=== PATIENT | female | born 1950 | race Caucasian/White ===

== ENCOUNTER 2017-06-25 05:27 | Emergency (ER) | payer MEDICARE, MEDICAID ==
[2017-06-25 06:13] LABS: ABSOLUTE LYMPHOCYTES (AUTO) 1.1 10^3/uL (0.5-4.7); ABSOLUTE MONOCYTES (AUTO) 0.2 10^3/uL (0.1-1.4); ABSOLUTE NEUT (AUTO) 5.5 10^3/uL (1.7-8.2); BASOPHILS % (AUTO) 0.5 % (0-2); EOSINOPHILS % (AUTO) 0.3 % (0-6); HEMATOCRIT 35.8 % (36.0-47.0); HEMOGLOBIN 12.3 g/dL (12.0-15.5); HGB HCT DIFFERENCE 1.1; MEAN CORPUSCULAR HEMOGLOBIN 29.1 pg (27.0-33.4); MEAN CORPUSCULAR HGB CONC 34.3 g/dL (32.0-36.0); MEAN CORPUSCULAR VOLUME 85 fl (80-97); MONOCYTES % (AUTO) 3.3 % (3-13); RED BLOOD COUNT 4.22 10^6/uL (3.72-5.28); RED CELL DISTRIBUTION WIDTH 15.2 % (11.5-14.0); SEGMENTED NEUTROPHILS % (AUTO) 79.9 % (42-78); WHITE BLOOD COUNT 6.9 10^3/uL (4.0-10.5)
--- NOTE | 2017-06-25 06:25 | ER Document Report ---
ED General - General Chief Complaint: Psych Problem Stated Complaint: POSSIBLE ANXIETY Time Seen by Provider: 06/25/17 06:07 Mode of Arrival: Ambulatory Information source: Patient Notes: 66 yr old female presents with complaitns of grieving after coming ot view her sons body today. Pt [place], told the nurse pump service supervisor that she had nothing to live for, pt stated to her that she wanted ot drive into a pole. TRAVEL OUTSIDE OF THE [place] IN LAST 30 DAYS: No - HPI Onset: Just prior to arrival Onset/Duration: Sudden Quality of pain: No pain Severity: None Pain Level: Denies Associated symptoms: None Exacerbated by: Denies Relieved by: Denies Similar symptoms previously: No Recently seen / treated by doctor: No - Related Data Allergies/Adverse Reactions: fentanyl Allergy (Verified 06/25/17 05:47) Past Medical History - Social History Smoking Status: Never Smoker Cigarette use (# per day): No Chew tobacco use (# tins/day): No Smoking Education Provided: No Family History: Reviewed & Not Pertinent Patient has suicidal ideation: Yes Patient has homicidal ideation: No Renal/ Medical History: Denies: Hx Peritoneal Dialysis Review of Systems - Review of Systems Notes: REVIEW OF SYSTEMS: CONSTITUTIONAL : Denies fever, chills, or sweats. Denies recent illness. EENT: Denies eye, ear, throat, or mouth pain or symptoms. Denies nasal or sinus congestion or discharge. Denies throat, tongue, or mouth swelling or difficulty swallowing. CARDIOVASCULAR: Denies chest pain. Denies palpitations or racing or irregular heart beat. Denies ankle edema. RESPIRATORY: Denies cough, cold, or chest congestion. Denies shortness of breath, difficulty breathing, or wheezing. GASTROINTESTINAL: Denies abdominal pain or distention. Denies nausea, vomiting , or diarrhea. Denies blood in vomitus, stools, or per rectum. Denies black, tarry stools. Denies constipation. GENITOURINARY: Denies difficulty urinating, painful urination, burning, frequency, blood in urine, or discharge. FEMALE GENITOURINARY: Denies vaginal bleeding, heavy or abnormal periods, irregular periods. Denies vaginal discharge or odor. MUSCULOSKELETAL: Denies back or neck pain or stiffness. Denies joint pain or swelling. SKIN: Denies rash, lesions or sores. HEMATOLOGIC : Denies easy bruising or bleeding. LYMPHATIC: Denies swollen, enlarged glands. NEUROLOGICAL: Denies confusion or altered mental status. Denies passing out or loss of consciousness. Denies dizziness or lightheadedness. Denies headache. Denies weakness or paralysis or loss of use of either side. Denies problems with gait or speech. Denies sensory loss, numbness, or tingling. Denies seizures. PSYCHIATRIC: Patient is grieving tearful ALL OTHER SYSTEMS REVIEWED AND NEGATIVE. PHYSICAL EXAMINATION: GENERAL: Well-appearing, well-nourished and in no acute distress. HEAD: Atraumatic, normocephalic. EYES: Pupils equal round and reactive to light, extraocular movements intact, conjunctiva are normal. ENT: Nares patent, oropharynx clear without exudates. Moist mucous membranes. NECK: Normal range of motion, supple without lymphadenopathy LUNGS: Breath sounds clear to auscultation bilaterally and equal. No wheezes rales or rhonchi. HEART: Regular rate and rhythm without murmurs ABDOMEN: Soft, nontender, nondistended abdomen. No guarding, no rebound. No masses appreciated. Female : deferred Musculoskeletal: Normal range of motion, no pitting or edema. No cyanosis. NEUROLOGICAL: Cranial nerves grossly intact. Normal speech, normal gait. Normal sensory, motor exams PSYCH: Normal mood, normal affect. SKIN: Tearful Dictation was performed using [employer] voice recognition software Physical Exam - Vital signs Vitals: Temp Pulse Resp BP Pulse Ox 97.7 F 85 20 192/98 H 98 06/25/17 05:42 06/25/17 05:42 06/25/17 05:42 06/25/17 05:42 06/25/17 05:42 Course - Re-evaluation Re-evalutation: 06/25/17 06:25 Patient is obviously grieving due to this traumatic event, I will have clergy and mental health see the patient. I do not believe patient wishes to harm herself and this was just a response to this traumatic event is any parent would be 06/25/17 10:57 pt does have very poor insight, mental health with ivc for her protection - Vital Signs Vital signs: Temp Pulse Resp BP Pulse Ox 97.7 F 85 20 192/98 H 98 06/25/17 05:42 06/25/17 05:42 06/25/17 05:42 06/25/17 05:42 06/25/17 05:42 - Laboratory Result Diagrams: 06/25/17 05:55 06/25/17 05:55 Laboratory results interpreted by me: 06/25/17 06/25/17 05:55 05:55 Hct 35.8 L RDW 15.2 H Seg Neutrophils % 79.9 H Sodium 145.7 H Chloride 108 H Salicylates < 1.0 L Acetaminophen < 10 L - EKG Interpretation by Me EKG shows normal: Sinus rhythm, [place], Intervals, QRS Complexes Discharge - Discharge Clinical Impression: Grief Condition: Stable Disposition: PSYCH HOSP/UNIT
[2017-06-25 06:30] LABS: ALANINE AMINOTRANSFERASE 14 U/L (9-52); ALBUMIN 4.2 g/dL (3.5-5.0); ALKALINE PHOSPHATASE 73 U/L (38-126); ANION GAP 10 (5-19); ASPARTATE AMINO TRANSFERASE 21 U/L (14-36); BILIRUBIN,DIRECT 0.3 mg/dL (0.0-0.4); BILIRUBIN,TOTAL 0.3 mg/dL (0.2-1.3); BLOOD UREA NITROGEN 13 mg/dL (7-20); CALCIUM 8.8 mg/dL (8.4-10.2); CARBON DIOXIDE 28 mmol/L (22-30); CHLORIDE 108 mmol/L (98-107); CREATININE RESULT 0.82 mg/dL (0.52-1.25); GLUCOSE 79 mg/dL (75-110); POTASSIUM 3.8 mmol/L (3.6-5.0); SODIUM 145.7 mmol/L (137-145); TOTAL PROTEIN 7.3 g/dL (6.3-8.2)
[2017-06-25 06:31] LABS: ALCOHOL < 10 mg/dL (NONE DETECTED)
[2017-06-25 08:14] LABS: APPEARANCE,URINE CLEAR; BILIRUBIN,URINE NEGATIVE (NEGATIVE); GLUCOSE, URINE NEGATIVE (NEGATIVE); KETONES,URINE NEGATIVE (NEGATIVE); LEUKOCYTE ESTERASE,URINE NEGATIVE (NEGATIVE); NITRITE,URINE NEGATIVE (NEGATIVE); PROTEIN,URINE NEGATIVE (NEGATIVE); URINE SPECIFIC GRAVITY 1.002; UROBILINOGEN,URINE NEGATIVE mg/dL (<2.0)
--- NOTE | 2017-06-25 08:21 | EKG REPORT ---
SEVERITY:- BORDERLINE ECG - SINUS RHYTHM BORDERLINE PROLONGED QT INTERVAL : Confirmed by: Kei Hernandez MD 25-Jun-2017 08:20:28
[2017-06-25 08:25] LABS: URINE BARBITURATES SCREEN NEGATIVE; URINE METHADONE SCREEN NEGATIVE; URINE OPIATES LOW NEGATIVE; URINE PHENCYCLIDINE SCREEN NEGATIVE
[2017-06-25] MEDS ORDERED: LOPERAMIDE HCL 2 MG CAPSULE PO ONE (08:46)
--- NOTE | 2017-06-25 11:21 | ER Document Report ---
ED Psych Disorder / Suicide - General Chief Complaint: Psych Problem Stated Complaint: POSSIBLE ANXIETY Time Seen by Provider: 06/25/17 06:07 Mode of Arrival: Ambulatory TRAVEL OUTSIDE OF THE [place] IN LAST 30 DAYS: No - HPI Notes: Pt recently found out that her son has past away. Pt verbalizes that she has no reason to live. Pt stated to nursing supervisor insecticide that she should just drive her car into a pole, because she has no reason to go on. Pt stated that she would be better off just joining her son. Pt stated that she will never eat again as well. Pt reported that she drove straight to [place] from [place] by herself after she was notified of sons . Patient states she found out her son was in the [facility] morgue and immediately got into the car and drove here. She states she needs to see him. She continued to disclose her son has had issues with drugs and for the last year he has been living with her and she has been supervising him. She states he meet a "girl" and was staying with her and doing drugs again. She states he just saved her ( the girl friend) life because of overdose. Patient continued to disclose that the girl friend lives in [place] and she plans to go straight to the stock plan administrator's office to get more information because "my son is not going to in [facility]." Patient states "my son is and they will not let me see him... he is all I have." Patient is alert and orientated to person place time and circumstance. Mood is dysphoric with tearful affect. Patient verbalizes suicidal and time homicidal ideation comments no delusions are noted. Patient denies auditory visual hallucinations; patient not to demonstrating any behavior congruent with responding to internal stimuli. Thought process currently organized and linear. Thought content is focused on seeing her son and possibly seeking revenge. Intellectual abilities appear to be within average range. Attention and concentration are fair. Insight, judgment, impulse control is currently poor. Bereavement Acute stress disorder can't be diagnosed until 3 days after event Impression\\plan: Patient is recommended for IVC. Patient is verbalizing suicidal and homicidal ideation in regards to dealing with her son's . Clinician notes patient with a notified of her son's and immediately got into the vehicle and drove to [facility] in an attempt to see the body. Patient is currently in crisis. Was consulted on the care and management of this patient; attending physician is agreement with recommendations and disposition Check in conducted later with patient. Patient has slept and is calmer. Patient 's family was successfully contacted they are agreeing to part of patient's discharge plan. Patient states she would like to use [facility] in [place], [place]. Patient is recommended for rescind of IVC and is considered psychiatrically cleared for discharge. Patient was in acute distress after being notified of her son's . - Related Data Allergies/Adverse Reactions: fentanyl Allergy (Verified 06/25/17 05:47) Past Medical History - General Information source: Patient - Social History Smoking Status: Never Smoker Cigarette use (# per day): No Chew tobacco use (# tins/day): No Frequency of alcohol use: None Drug Abuse: None Family History: Reviewed & Not Pertinent Patient has suicidal ideation: Yes Patient has homicidal ideation: No Renal/ Medical History: Denies: Hx Peritoneal Dialysis - Immunizations Hx Diphtheria, Pertussis, Tetanus Vaccination: Yes Physical Exam - Vital signs Vitals: Temp Pulse Resp BP Pulse Ox 97.7 F 85 20 192/98 H 98 06/25/17 05:42 06/25/17 05:42 06/25/17 05:42 06/25/17 05:42 06/25/17 05:42 Course - Vital Signs Vital signs: Temp Pulse Resp BP Pulse Ox 97.7 F 85 20 192/98 H 98 06/25/17 05:42 06/25/17 05:42 06/25/17 05:42 06/25/17 05:42 06/25/17 05:42 - Laboratory Result Diagrams: 06/25/17 05:55 06/25/17 05:55 Laboratory results interpreted by me: 06/25/17 06/25/17 05:55 05:55 Hct 35.8 L RDW 15.2 H Seg Neutrophils % 79.9 H Sodium 145.7 H Chloride 108 H Salicylates < 1.0 L Acetaminophen < 10 L Discharge - Discharge Clinical Impression: Grieving Condition: Stable Disposition: HOME, SELF-CARE Additional Instructions: AT ANY TIME, IF YOUR SYMPTOMS CHANGE SIGNIFICANTLY OR WORSEN OR YOU DEVELOP NEW SYMPTOMS, RETURN TO THE EMERGENCY DEPARTMENT IMMEDIATELY FOR RE-EVALUATION. OUR GOAL IS TO PROVIDE EXCELLENT MEDICAL CARE! WE HOPE THAT WE HAVE MET YOUR EXPECTATIONS DURING YOUR EMERGENCY DEPARTMENT VISIT AND THAT YOU FEEL YOU HAVE RECEIVED EXCELLENT CARE! Prescriptions: Quetiapine Fumarate [Seroquel 100 mg Tablet] 100 mg PO QHS #30 tablet Buspirone HCl [Buspar 5 mg Tablet] 1 tab PO Q8 #30 tab
[2017-06-25] MEDS ORDERED: METOCLOPRAMIDE HCL 10 MG TABLET PO ONE (13:16)
[2017-06-25] MEDS ORDERED: DICYCLOMINE HCL 20 MG TABLET PO ONE (13:16)
[2017-06-25] MEDS ORDERED: HYDROXYZINE PAMOATE 50 MG CAPSULE PO PRN (13:59)
[2017-06-25] MEDS ORDERED: BUSPIRONE HCL 10 MG TABLET PO SCH (14:00)
[2017-06-25 19:03] VITALS: BP 128/67
[2017-06-25] MEDS ORDERED: QUETIAPINE FUMARATE 100 MG TABLET PO SCH (22:00)
== END 2017-06-25 19:13 | disposition home or self-care (01) ==
LOC: ER 05:27
DX: F43.20 Adjustment disorder, unspecified (principal); F41.9 Anxiety disorder, unspecified
CPT/HCPCS: 93005; 99284; 36415; 80307 ×4; 85025; 80053; 81001; 93010; A9270 ×4; J3490